=== PATIENT | male | born 1955 | race Caucasian/White ===

== ENCOUNTER 2024-06-09 23:39 | Emergency (ER) | payer OTHER ==
--- OUTSIDE RECORDS SUMMARY | 2024-06-09 23:44 | XMS REPORT | Continuity of Care Document ---
Author Name Unknown Address [address] [facility]. 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 Role Phone Claudia COMER [place] Primary Care Physician + [phone] DANA CUENCA Attending Clinician Unavailable Claudia Currie MD Attending Clinician [phone] CLAUDIA CURRIE Attending Clinician Unavailable Db Corrales APRN Attending Clinician [phone] Claudia Currie MD Attending Clinician [phone] MELANI HERNANDEZ Attending Clinician Unavailab Melani Mendoza Attending Clinician + [phone] Unknown, Attending Attending Clinician Unavailab le Doctor Unassigned, [place] Attending Clinician U Araseli Faulkner MD Attending Clinician [phone] MARI MOODY Attending Clinician Unavailable Mari Nj Attending Clinician + [phone] ARASELI RODRIGES Attending Clinician Unavailable SANDIP BROWN Attending Clinician Unavailable Ebrahim PAPER STEAMERSandip Attending Clinician Vaccine, Ang Db Cbc Fam Attending Clinician Unav ailable NEAL GRAHAM Attending Clinician Unavail able Nurse, Adc Pob Immunization Attending Clinician Unavailable Neal Graham DO Attending Clinician JOEL MAIER Attending Clinician Unavailable UNKNOWN, ATTENDING Attending Clinician Unavailab RAJ Andrade Attending Clinician Unavailable DANA CUENCA Admitting Clinician Unavailable CLAUDIA CURRIE Admitting Clinician Unavailable Payers Payer Name Policy Type Policy Number Effective Date Expirati on Date Source AETNA O [id number] 2019 00:00:00 MEDICARE PART A [id number] 2021 00:00:00 [facility] [id number] 2020 00:00:00 Problems Condition Name Condition Details Condition Category Status Onset Date Resolution Date Last Treatment Date Treating Clinician Comments Source Sprain of anterior talofibula r ligament of left ankle Sprain of anterior talofibula r ligament of left ankle Disease Active 01-18 00:00: [address] [facility] COVID-19 COVID-19 Disease Active 01-16 00:00: 00 [facility] Morbid obesity with body mass index of 40.0-49.9 Morbid obesity with body mass index of 40.0-49.9 Disease Active 11-16 00:00: 00 [facility] Screening for colorectal cancer Screening for colorectal cancer Disease Active 08-12 00:00: 00 Overview: Formattin g of this note might be different from the original. Added automatic ally from request for surgery [id number] [facility] Mixed dyslipidem ia Mixed dyslipidem ia Disease Active 03-22 00:00: 00 [facility] Erythrocyt osis Erythrocyt osis Disease Active 03-22 00:00: 00 [facility] B12 deficiency B12 deficiency Disease Active 03-22 00:00: 00 [facility] Chronic pain of right knee Chronic pain of right knee Disease Active 03-20 00:00: 00 [facility] Anxiety disorder Anxiety disorder Disease Active 03-20 00:00: 00 [facility] Chronic right shoulder pain Chronic right shoulder pain Disease Active 03-20 00:00: 00 [facility] Essential hypertensi on Essential hypertensi on Disease Active 03-20 00:00: 00 [facility] Allergic rhinitis Allergic rhinitis Disease Active 03-20 00:00: 00 [facility] Obesity Obesity Disease Active 03-20 00:00: 00 [facility] Allergies, Adverse Reactions, Alerts Allergy Name Allergy Type Status Severity Reaction(s) Onset Date Inactive Date Treating Clinician Comments Source NO KNOWN ALLERGIE S Drug Class Active [facility] Social History Social Habit Start Date Stop Date Quantity Comments Source Sexual [facility] History of tobacco use Cigarette Smoker [facility] History SDOH Alcohol Frequency [facility] History SDOH Alcohol Std Drinks [facility] History SDOH Alcohol Binge [facility] Gender identity [facility] Tobacco use and exposure 2024-01-17 00:00:00 2024-01-17 00:00:00 Smokeless tobacco non-user [facility] History of Social function 2024-01-17 00:00:00 2024-01-17 00:00:00 [facility] Alcoholic beverage intake 2024-01-14 00:00:00 2024-01-14 00:00:00 0 /d [facility] Alcohol intake 2023-11-07 00:00:00 2023-11-07 00:00:00 0 /d [facility] Exposure to SARS-CoV-2 (event) 2022-11-08 00:00:00 2022-11-18 15:23:00 Not sure [facility] Alcohol Comment 2016 00:00:00 2016 00:00:00 occasional [facility] Sex assigned at 1955 00:00:00 1955 00:00:00 [facility] Smoking Status Start Date Stop Date Source Never smoked tobacco [facility] Ex-smoker 2023-11-25 00:00:00 2023-11-25 00:00:00 [facility] Medications Ordered Medication Name Filled Medication Name Start Date Stop Date Current Medication? Ordering Clinician Indication Dosage Frequency Signature (SIG) Comments Components Source LISINOPRIL 20 mg tablet 2023-07 00:00: 00 Yes [id number] 20mg TAKE 1 TABLET BY MOUTH DAILY [facility] triamcinolo ne acetonide (KENALOG) injection 40 mg 2023-07 16:30: 00 04-22 15:49 :00 No [id number] 40mg 40 mg, Intramuscu lar, ONCE, 1 dose, On Sat04/22/24 at 1130, Routine [facility] methylPREDN ISolone acetate (DEPO-MEDRO L) injection 80 mg 2023-07 16:15: 00 04-22 15:48 :00 No [id number] 80mg 80 mg, Intramuscu lar, ONCE, 1 dose, On Sat04/22/24 at 1115, Routine [facility] traMADoL 50 mg tablet 2023-07 00:00: 00 04-30 04:59 :00 Yes [id number] 50mg Take 1 tablet by mouth every 6 (six) hours as needed for Pain (scale 4-6) for up to 7 days. Indication s: acute pain [facility] METHOCARBAM OL 750 mg tablet 04-03 00:00: 00 Yes [id number] TAKE 1 TABLET BY MOUTH 4 TIMES A DAY [facility] clonazePAM 2 mg tablet 04-03 00:00: 00 Yes [id number] TAKE 1 TABLET BY MOUTH 3 TIMES A DAY NEEDED FOR ANXIETY [facility] lisinopril 20 MG tablet 01-16 09:38: 12 Yes 20mg QD Take 20 mg by mouth 1 (one) time each day. [facility] methocarbam ol (Robaxin) 500 MG tablet 01-16 09:38: 12 Yes 500mg Q.25D Take 500 mg by mouth in the morning and 500 mg at noon and 500 mg in the evening and 500 mg before bedtime. [facility] etodolac XL (Lodine XL) 500 MG 24 hr tablet 01-16 09:38: 12 Yes 500mg QD Take 500 mg by mouth 1 (one) time each day. [facility] clonazePAM (KlonoPIN) 2 MG tablet 01-16 09:38: 12 Yes Q.5D Take by mouth 2 (two) times a day if needed for seizures. [facility] ibuprofen 600 MG tablet 01-16 09:38: 12 Yes Take by mouth. [facility] cyancobalam in (Vitamin B-12) 500 MCG tablet 01-16 09:38: 12 Yes 500ug QD Take 500 mcg by mouth 1 (one) time each day. [facility] traMADol (Ultram) 50 MG tablet 01-16 00:00: 00 01-24 04:59 :00 No [id number] 50mg Q6H Take 1 tablet (50 mg total) by mouth every 6 (six) hours if needed for moderate pain for up to [address] [facility] ibuprofen 600 mg tablet 01-13 00:00: 00 Yes [id number] 600mg Take 1 tablet by mouth every 6 (six) hours as needed for Pain (scale 4-6). [facility] moxifloxaci n 0.5 % ophthalmic drops 01-13 00:00: 00 01-21 04:59 :00 No [id number] 1[drp] Place 1 Drop in left eye in the morning and 1 Drop at noon and 1 Drop in the evening. Do all this for 7 days. [facility] clonazePAM 2 mg tablet 12-22 00:00: 00 04-03 00:00 :00 No [id number] TAKE ONE TABLET BY MOUTH THREE TIMES A DAY NEEDED FOR ANXIETY [facility] LISINOPRIL 20 mg tablet 11-20 00:00: 00 05-25 00:00 :00 No [id number] 20mg TAKE 1 TABLET BY MOUTH DAILY [facility] Fluticasone -Salmeterol (WIXELA INHUB) 100-50 mcg/dose inhalation disk -19 00:00: 00 Yes [id number] 1{puff} Inhale 1 Puff every 12 (twelve) hours. [facility] phentermine HCl (PHENTERMIN E ORAL) 11-06 15:49: 36 Yes Take by mouth. [facility] montelukast 10 mg tablet 11-06 00:00: 00 Yes [id number] 10mg Take 1 tablet by mouth in the morning. [facility] benzonatate (TESSALON PERLES) 100 mg capsule 11-06 00:00: 00 Yes [id number] 100mg Take 1 capsule by mouth 3 (three) times daily as needed for Cough. [facility] azelastine 137 mcg (0.1 %) nasal spray 11-06 00:00: 00 Yes [id number] 1{spray } Use 1 [place] in each nostril in the morning and 1 [place] in the evening. Use in each nostril as directed [facility] budesonide- formoteroL 80-4.5 mcg/actuati on inhaler 11-06 00:00: 00 11-07 00:00 :00 No [id number] 2{puff} Inhale 2 Puffs in the morning and 2 Puffs in the evening. [facility] METHOCARBAM OL 750 mg tablet 10-28 00:00: 00 04-03 00:00 :00 No [id number] TAKE 1 TABLET BY MOUTH 4 TIMES A DAY [facility] methylpredn isolone sod succ (SOLU-MEDRO L) injection 125 mg 10-26 22:45: 00 10-26 22:15 :00 No [id number] 125mg 125 mg, Intramuscu lar, ONCE, 1 dose, On 10/27/23 at 1745, Routine [facility] albuterol 90 mcg/actuati on inhaler 10-26 00:00: 00 Yes [id number] 2{puff} Inhale 2 Puffs every 6 (six) hours as needed for Wheezing or Shortness of Breath. [facility] guaiFENesin 400 mg tablet 10-26 00:00: 00 Yes [id number] 400mg Take 1 tablet by mouth every 4 (four) hours as needed for Cough. [facility] benzonatate 100 mg capsule 10-26 00:00: 11-06 00:00 :00 No [id number] 200mg Take 2 capsules by mouth every 8 (eight) hours as needed for Cough. [facility] promethazin e-dextromet horphan 6.25-15 mg/5 mL syrup 10-26 00:00: 11-06 00:00 :00 No [id number] 5mL Take 5 mL by mouth 4 (four) times daily as needed for Cough. [facility] amoxicillin -clavulanat e (AUGMENTIN) 875-125 mg per tablet 10-26 00:00: 00 11-06 00:00 :00 No [id number] 1{tbl} Take 1 tablet by mouth in the morning and 1 tablet in the evening. [facility] predniSONE 20 mg tablet 10-26 00:00: 11-06 00:00 :00 No [id number] 40mg Take 2 tablets by mouth in the morning. [facility] clonazePAM 2 mg tablet 10-22 00:00: 12-22 00:00 :00 No [id number] TAKE ONE TABLET BY MOUTH THREE TIMES A DAY NEEDED FOR ANXIETY [facility] cyanocobala min (DODEX) injection 1,000 mcg 10-20 21:00: 00 10-20 20:05 :00 No [id number] 1000ug 1,000 mcg, Intramuscu lar, ONCE, 1 dose, On Sat10/21/23 at 1600, Routine [facility] methylPREDN ISolone (MEDROL, CALI,) 4 mg tablets 10-20 00:00: 00 Yes [id number] Take by mouth SEE-INSTRU CTIONS. follow package directions [facility] azithromyci n 250 mg tablet 10-20 00:00: 00 11-06 00:00 :00 No [id number] 250mg Take 1 tablet by mouth in the morning. Take 500 mg day 1, then 250 mg days 2 to 5. [facility] ETODOLAC 500 mg tablet 2022-07 00:00: 00 Yes [id number] TAKE ONE TABLET BY MOUTH TWICE A DAY [facility] METHOCARBAM OL 750 mg tablet 2022-07- 00:00: 00 10-28 00:00 :00 No [id number] 750mg TAKE ONE TABLET BY MOUTH FOUR TIMES A DAY [facility] clonazePAM 2 mg tablet 9-14 00:00: 00 10-22 00:00 :00 No [id number] TAKE ONE TABLET BY MOUTH THREE TIMES A DAY NEEDED FOR ANXIETY [facility] methocarbam oL 750 mg tablet -26 00:00: 00 04-22 00:00 :00 No [id number] 750mg Take 1 tablet by mouth 4 (four) times daily. [facility] CLONAZEPAM 2 mg tablet 12-10 00:00: 00 04-04 00:00 :00 No [id number] TAKE ONE TABLET BY MOUTH THREE TIMES A DAY NEEDED FOR ANXIETY [facility] LISINOPRIL 20 mg tablet 12-06 00:00: 00 11-20 00:00 :00 No [id number] TAKE ONE TABLET BY MOUTH DAILY [facility] aspirin 325 mg tablet 11-19 14:33: 18 11-19 00:00 :00 No 325mg Take 325 mg by mouth daily. [facility] phentermine HCl (PHENTERMIN E ORAL) 11-19 14:16: 17 Yes Take by mouth. [facility] HYDROcodone -acetaminop hen 7.5-325 mg per tablet 11-19 00:00: 00 04-22 00:00 :00 No [id number] 1{tbl} Take 1 tablet by mouth every 6 (six) hours as needed for Pain. Take 1 tablet by mouth every 6 (six) hours as needed for Pain for up to 7 days. Indication s: chronic pain Indication s: chronic pain [facility] METHOCARBAM OL 750 mg tablet 309 00:00: 00 01-14 00:00 :00 No [id number] TAKE ONE TABLET BY MOUTH FOUR TIMES A DAY [facility] CL[facility] 2 mg tablet 17 00:00: 00 12-10 00:00 :00 No [id number] TAKE ONE TABLET BY MOUTH THREE TIMES A DAY NEEDED FOR ANXIETY [facility] methocarbam oL 750 mg tablet 2021-07 00:00: 00 09-27 00:00 :00 No [id number] 750mg Take 1 tablet by mouth 4 (four) times daily. [facility] ETODOLAC 500 mg tablet 2021-07 00:00: 00 05-29 00:00 :00 No [id number] TAKE ONE TABLET BY MOUTH TWICE A DAY [facility] LISINOPRIL 20 mg tablet 2021-07 00:00: 00 12-06 00:00 :00 No [id number] TAKE ONE TABLET BY MOUTH DAILY [facility] CLONAZEPAM 2 mg tablet 2021-07 00:00: 00 08-07 00:00 :00 No [id number] TAKE ONE TABLET BY MOUTH THREE TIMES A DAY NEEDED FOR ANXIETY [facility] etodolac 500 mg tablet 11-27 00:00: 00 06-11 00:00 :00 No [id number] 500mg Take 1 tablet by mouth 2 (two) times daily. [facility] clonazePAM 2 mg tablet 11-27 00:00: 00 06-05 00:00 :00 No [id number] TAKE ONE TABLET BY MOUTH THREE TIMES A DAY NEEDED FOR ANXIETY [facility] LISINOPRIL 20 mg tablet 09-12 00:00: 00 06-06 00:00 :00 No [id number] TAKE ONE TABLET BY MOUTH DAILY [facility] CLONAZE[facility]AM 2 mg tablet 09-12 00:00: 00 11-27 00:00 :00 No [id number] TAKE ONE TABLET BY MOUTH THREE TIMES A DAY NEEDED FOR ANXIETY [facility] albuterol 90 mcg/actuati on inhaler 02-15 00:00: 00 Yes [id number] 2{puff} Inhale 2 Puffs every 4 (four) hours as needed for Wheezing or Shortness of Breath. [facility] aspirin 325 mg tablet 01-30 20:30: 52 Yes 325mg Take 325 mg by mouth daily. [facility] ondansetron (ZOFRAN ODT) 4 mg disintegrat ing tablet 01-14 00:00: 00 11-06 00:00 :00 No [id number] 4mg Take 1 tablet by mouth every 8 (eight) hours as needed for Nausea and Vomiting (N/V). [facility] etodolac 500 mg tablet 12-29 00:00: 00 11-27 00:00 :00 No [id number] 500mg Take 1 tablet by mouth 2 (two) times daily. [facility] tadalafil (CIALIS) 20 mg tablet 02-16 00:00: 00 Yes [id number] 20mg Take 1 tablet by mouth as needed for Erectile dysfunctio n. [facility] HYDROcodone -acetaminop hen 7.5-325 mg per tablet 25 00:00: 00 11-27 00:00 :00 No [id number] 1{tbl} Take 1 tablet by mouth every 6 (six) hours as needed for Pain. [facility] vitamin B-12 (VITAMIN B-12) 500 mcg tablet 03-22 00:00: 00 Yes 500ug Take 1 tablet by mouth daily. [facility] Immunizations Ordered Immunization Name Filled Immunization Name Date Status Comments Source SARS-COV-2 COVID-19 PFIZER SAMUEL-SUCROSE VACCINE (JEAN TOP) 2021-11-24 00:00:00 Completed [facility] SARS-COV-2 COVID-19 PFIZER SAMUEL-SUCROSE VACCINE (JEAN TOP) 2021-11-24 00:00:00 Completed [facility] SARS-COV-2 COVID-19 PFIZER SAMUEL-SUCROSE VACCINE (JEAN TOP) 2021-11-24 00:00:00 Completed [facility] SARS-COV-2 COVID-19 PFIZER SAMUEL-SUCROSE VACCINE (JEAN TOP) 2021-11-24 00:00:00 Completed [facility] SARS-COV-2 COVID-19 PFIZER SAMUEL-SUCROSE VACCINE (JEAN TOP) 2021-11-24 00:00:00 Completed [facility] SARS-COV-2 COVID-19 PFIZER SAMUEL-SUCROSE VACCINE (JEAN TOP) 2021-11-24 00:00:00 Completed [facility] SARS-COV-2 COVID-19 PFIZER SAMUEL-SUCROSE VACCINE (JEAN TOP) 2021-11-24 00:00:00 Completed [facility] SARS-COV-2 COVID-19 PFIZER SAMUEL-SUCROSE VACCINE (JEAN TOP) 2021-11-24 00:00:00 Completed [facility] SARS-COV-2 COVID-19 PFIZER SAMUEL-SUCROSE VACCINE (JEAN TOP) 2021-11-24 00:00:00 Completed [facility] SARS-COV-2 COVID-19 PFIZER SAMUEL-SUCROSE VACCINE (JEAN TOP) 2021-11-24 00:00:00 Completed [facility] SARS-COV-2 COVID-19 PFIZER SAMUEL-SUCROSE VACCINE (JEAN TOP) 2021-11-24 00:00:00 Completed [facility] SARS-COV-2 COVID-19 PFIZER SAMUEL-SUCROSE VACCINE (JEAN TOP) 2021-11-24 00:00:00 Completed [facility] SARS-COV-2 COVID-19 PFIZER SAMUEL-SUCROSE VACCINE (JEAN TOP) 2021-11-24 00:00:00 Completed [facility] SARS-COV-2 COVID-19 PFIZER SAMUEL-SUCROSE VACCINE (JEAN TOP) 2021-11-24 00:00:00 Completed [facility] SARS-COV-2 COVID-19 PFIZER SAMUEL-SUCROSE VACCINE (JEAN TOP) 2021-11-24 00:00:00 Completed [facility] SARS-COV-2 COVID-19 PFIZER SAMUEL-SUCROSE VACCINE (JEAN TOP) 2021-11-24 00:00:00 Completed [facility] SARS-COV-2 COVID-19 PFIZER SAMUEL-SUCROSE VACCINE (JEAN TOP) 2021-11-24 00:00:00 Completed [facility] SARS-COV-2 COVID-19 PFIZER SAMUEL-SUCROSE VACCINE (JEAN TOP) 2021-11-24 00:00:00 Completed [facility] SARS-COV-2 COVID-19 PFIZER SAMUEL-SUCROSE VACCINE (JEAN TOP) 2021-11-24 00:00:00 Completed [facility] SARS-COV-2 COVID-19 PFIZER SAMUEL-SUCROSE VACCINE (JEAN TOP) 2021-11-24 00:00:00 Completed [facility] SARS-COV-2 COVID-19 PFIZER SAMUEL-SUCROSE VACCINE (JEAN TOP) 2021-11-24 00:00:00 Completed [facility] SARS-COV-2 COVID-19 PFIZER SAMUEL-SUCROSE VACCINE (JEAN TOP) 2021-11-24 00:00:00 Completed [facility] SARS-COV-2 COVID-19 PFIZER SAMUEL-SUCROSE VACCINE (JEAN TOP) 2021-11-24 00:00:00 Completed [facility] SARS-COV-2 COVID-19 PFIZER SAMUEL-SUCROSE VACCINE (JEAN TOP) 2021-11-24 00:00:00 Completed [facility] SARS-COV-2 COVID-19 PFIZER SAMUEL-SUCROSE VACCINE (JEAN TOP) 2021-11-24 00:00:00 Completed [facility] SARS-COV-2 COVID-19 PFIZER SAMUEL-SUCROSE VACCINE (JEAN TOP) 2021-11-24 00:00:00 Completed [facility] SARS-COV-2 COVID-19 PFIZER SAMUEL-SUCROSE VACCINE (JEAN TOP) 2021-11-24 00:00:00 Completed [facility] SARS-COV-2 COVID-19 PFIZER SAMUEL-SUCROSE VACCINE (JEAN TOP) 2021-11-24 00:00:00 Completed [facility] SARS-COV-2 COVID-19 PFIZER VACCINE 2021-03-15 00:00:00 Completed [facility] SARS-COV-2 COVID-19 PFIZER VACCINE 2021-03-15 00:00:00 Completed [facility] SARS-COV-2 COVID-19 PFIZER VACCINE 2021-03-15 00:00:00 Completed [facility] SARS-COV-2 COVID-19 PFIZER VACCINE 2021-03-15 00:00:00 Completed [facility] SARS-COV-2 COVID-19 PFIZER VACCINE 2021-03-15 00:00:00 Completed [facility] SARS-COV-2 COVID-19 PFIZER VACCINE 2021-03-15 00:00:00 Completed [facility] SARS-COV-2 COVID-19 PFIZER VACCINE 2021-03-15 00:00:00 Completed [facility] SARS-COV-2 COVID-19 PFIZER VACCINE 2021-03-15 00:00:00 Completed [facility] SARS-COV-2 COVID-19 PFIZER VACCINE 2021-03-15 00:00:00 Completed [facility] SARS-COV-2 COVID-19 PFIZER VACCINE 2021-03-15 00:00:00 Completed [facility] SARS-COV-2 COVID-19 PFIZER VACCINE 2021-03-15 00:00:00 Completed [facility] SARS-COV-2 COVID-19 PFIZER VACCINE 2021-03-15 00:00:00 Completed [facility] SARS-COV-2 COVID-19 PFIZER VACCINE 2021-03-15 00:00:00 Completed [facility] SARS-COV-2 COVID-19 PFIZER VACCINE 2021-03-15 00:00:00 Completed [facility] SARS-COV-2 COVID-19 PFIZER VACCINE 2021-03-15 00:00:00 Completed [facility] SARS-COV-2 COVID-19 PFIZER VACCINE 2021-03-15 00:00:00 Completed [facility] SARS-COV-2 COVID-19 PFIZER VACCINE 2021-03-15 00:00:00 Completed [facility] SARS-COV-2 COVID-19 PFIZER VACCINE 2021-03-15 00:00:00 Completed [facility] SARS-COV-2 COVID-19 PFIZER VACCINE 2021-03-15 00:00:00 Completed [facility] SARS-COV-2 COVID-19 PFIZER VACCINE 2021-03-15 00:00:00 Completed [facility] SARS-COV-2 COVID-19 PFIZER VACCINE 2021-03-15 00:00:00 Completed [facility] SARS-COV-2 COVID-19 PFIZER VACCINE 2021-03-15 00:00:00 Completed [facility] SARS-COV-2 COVID-19 PFIZER VACCINE 2021-03-15 00:00:00 Completed [facility] SARS-COV-2 COVID-19 PFIZER VACCINE 2021-03-15 00:00:00 Completed [facility] SARS-COV-2 COVID-19 PFIZER VACCINE 2021-03-15 00:00:00 Completed [facility] SARS-COV-2 COVID-19 PFIZER VACCINE 2021-03-15 00:00:00 Completed [facility] SARS-COV-2 COVID-19 PFIZER VACCINE 2021-03-15 00:00:00 Completed [facility] SARS-COV-2 COVID-19 PFIZER VACCINE 2021-03-15 00:00:00 Completed [facility] SARS-COV-2 COVID-19 PFIZER VACCINE 2021-01-02 00:00:00 Completed [facility] SARS-COV-2 COVID-19 PFIZER VACCINE 2021-01-02 00:00:00 Completed [facility] SARS-COV-2 COVID-19 PFIZER VACCINE 2021-01-02 00:00:00 Completed [facility] SARS-COV-2 COVID-19 PFIZER VACCINE 2021-01-02 00:00:00 Completed [facility] SARS-COV-2 COVID-19 PFIZER VACCINE 2021-01-02 00:00:00 Completed [facility] SARS-COV-2 COVID-19 PFIZER VACCINE 2021-01-02 00:00:00 Completed [facility] SARS-COV-2 COVID-19 PFIZER VACCINE 2021-01-02 00:00:00 Completed [facility] SARS-COV-2 COVID-19 PFIZER VACCINE 2021-01-02 00:00:00 Completed [facility] SARS-COV-2 COVID-19 PFIZER VACCINE 2021-01-02 00:00:00 Completed [facility] SARS-COV-2 COVID-19 PFIZER VACCINE 2021-01-02 00:00:00 Completed [facility] SARS-COV-2 COVID-19 PFIZER VACCINE 2021-01-02 00:00:00 Completed [facility] SARS-COV-2 COVID-19 PFIZER VACCINE 2021-01-02 00:00:00 Completed [facility] SARS-COV-2 COVID-19 PFIZER VACCINE 2021-01-02 00:00:00 Completed [facility] SARS-COV-2 COVID-19 PFIZER VACCINE 2021-01-02 00:00:00 Completed [facility] SARS-COV-2 COVID-19 PFIZER VACCINE 2021-01-02 00:00:00 Completed [facility] SARS-COV-2 COVID-19 PFIZER VACCINE 2021-01-02 00:00:00 Completed [facility] SARS-COV-2 COVID-19 PFIZER VACCINE 2021-01-02 00:00:00 Completed [facility] SARS-COV-2 COVID-19 PFIZER VACCINE 2021-01-02 00:00:00 Completed [facility] SARS-COV-2 COVID-19 PFIZER VACCINE 2021-01-02 00:00:00 Completed [facility] SARS-COV-2 COVID-19 PFIZER VACCINE 2021-01-02 00:00:00 Completed [facility] SARS-COV-2 COVID-19 PFIZER VACCINE 2021-01-02 00:00:00 Completed [facility] SARS-COV-2 COVID-19 PFIZER VACCINE 2021-01-02 00:00:00 Completed [facility] SARS-COV-2 COVID-19 PFIZER VACCINE 2021-01-02 00:00:00 Completed [facility] SARS-COV-2 COVID-19 PFIZER VACCINE 2021-01-02 00:00:00 Completed [facility] SARS-COV-2 COVID-19 PFIZER VACCINE 2021-01-02 00:00:00 Completed [facility] SARS-COV-2 COVID-19 PFIZER VACCINE 2021-01-02 00:00:00 Completed [facility] SARS-COV-2 COVID-19 PFIZER VACCINE 2021-01-02 00:00:00 [facility] [facility] SARS-COV-2 COVID-19 PFIZER VACCINE 2021-01-02 00:00:00 Completed [facility] TDAP 2019-06-12 00:00:00 Completed [facility] TDAP 2019-06-12 00:00:00 Completed [facility] TDAP 2019-06-12 00:00:00 Completed [facility] TDAP 2019-06-12 00:00:00 Completed [facility] TDAP 2019-06-12 00:00:00 Completed [facility] TDAP 2019-06-12 00:00:00 Completed [facility] TDAP 2019-06-12 00:00:00 Completed [facility] TDAP 2019-06-12 00:00:00 Completed [facility] TDAP 2019-06-12 00:00:00 Completed [facility] TDAP 2019-06-12 00:00:00 Completed [facility] TDAP 2019-06-12 00:00:00 Completed [facility] TDAP 2019-06-12 00:00:00 Completed [facility] TDAP 2019-06-12 00:00:00 Completed [facility] TDAP 2019-06-12 00:00:00 Completed [facility] TDAP 2019-06-12 00:00:00 Completed [facility] TDAP 2019-06-12 00:00:00 Completed [facility] TDAP 2019-06-12 00:00:00 Completed [facility] TDAP 2019-06-12 00:00:00 Completed [facility] TDAP 2019-06-12 00:00:00 Completed [facility] TDAP 2019-06-12 00:00:00 Completed [facility] TDAP 2019-06-12 00:00:00 Completed [facility] TDAP 2019-06-12 00:00:00 Completed [facility] TDAP 2019-06-12 00:00:00 Completed [facility] TDAP 2019-06-12 00:00:00 Completed [facility] TDAP 2019-06-12 00:00:00 Completed [facility] TDAP 2019-06-12 00:00:00 Completed [facility] TDAP 2019-06-12 00:00:00 Completed [facility] TDAP 2019-06-12 00:00:00 Completed [facility] TDAP Unknown Completed [facility] SARS-COV-2 COVID-19 PFIZER VACCINE Unknown Completed [facility] SARS-COV-2 COVID-19 PFIZER SAMUEL-SUCROSE VACCINE (JEAN TOP) Unknown Completed [facility] TD[facility] Unknown Completed [facility] SARS-COV-2 COVID-19 PFIZER VACCINE Unknown Completed [facility] SARS-COV-2 COVID-19 PFIZER SAMUEL-SUCROSE VACCINE (JEAN TOP) Unknown Completed [facility] TDAP Unknown Completed [facility] SARS-COV-2 COVID-19 PFIZER VACCINE Unknown Completed [facility] SARS-COV-2 COVID-19 PFIZER SAMUEL-SUCROSE VACCINE (JEAN TOP) Unknown Completed [facility] TDAP Unknown Completed [facility] SARS-COV-2 COVID-19 PFIZER VACCINE Unknown Completed [facility] SARS-COV-2 COVID-19 PFIZER SAMUEL-SUCROSE VACCINE (JEAN TOP) Unknown Completed [facility] TDAP Unknown Completed [facility] SARS-COV-2 COVID-19 PFIZER VACCINE Unknown Completed [facility] SARS-COV-2 COVID-19 PFIZER SAMUEL-SUCROSE VACCINE (JEAN TOP) Unknown [facility] Completed [facility] SARS-COV-2 COVID-19 PFIZER VACCINE Unknown Completed [facility] SARS-COV-2 COVID-19 PFIZER SAMUEL-SUCROSE VACCINE (JEAN TOP) Unknown Completed [facility] TDAP Unknown Completed [facility] SARS-COV-2 COVID-19 PFIZER VACCINE Unknown Completed [facility] SARS-COV-2 COVID-19 PFIZER SAMUEL-SUCROSE VACCINE (JEAN TOP) Unknown [facility] Unknown Completed [facility] SARS-COV-2 COVID-19 PFIZER SAMUEL-SUCROSE VACCINE (JEAN TOP) Unknown Completed [facility] SARS-COV-2 COVID-19 PFIZER VACCINE Unknown Completed [facility] TDAP Unknown Completed [facility] SARS-COV-2 COVID-19 PFIZER VACCINE Unknown Completed [facility] SARS-COV-2 COVID-19 PFIZER SAMUEL-SUCROSE VACCINE (JEAN TOP) Unknown Completed [facility] TDAP Unknown Completed [facility] SARS-COV-2 COVID-19 PFIZER VACCINE Unknown Completed [facility] SARS-COV-2 COVID-19 PFIZER SAMUEL-SUCROSE VACCINE (JEAN TOP) Unknown Completed [facility] TDAP Unknown Completed [facility] SARS-COV-2 COVID-19 PFIZER VACCINE Unknown Completed [facility] SARS-COV-2 COVID-19 PFIZER SAMUEL-SUCROSE VACCINE (JEAN TOP) Unknown Completed [facility] TDAP Unknown Completed [facility] SARS-COV-2 COVID-19 PFIZER SAMUEL-SUCROSE VACCINE (JEAN TOP) Unknown Completed [facility] SARS-COV-2 COVID-19 PFIZER VACCINE Unknown Completed [facility] TDAP Unknown Completed [facility] SARS-COV-2 COVID-19 PFIZER VACCINE Unknown Completed [facility] SARS-COV-2 COVID-19 PFIZER SAMUEL-SUCROSE VACCINE (JEAN TOP) Unknown Completed [facility] TDAP Unknown Completed [facility] SARS-COV-2 COVID-19 PFIZER VACCINE Unknown Completed [facility] SARS-COV-2 COVID-19 PFIZER SAMUEL-SUCROSE VACCINE (JEAN TOP) Unknown Completed [facility] TDAP Unknown Completed [facility] SARS-COV-2 COVID-19 PFIZER VACCINE Unknown Completed [facility] SARS-COV-2 COVID-19 PFIZER SAMUEL-SUCROSE VACCINE (JEAN TOP) Unknown [facility] TD[facility] Unknown Completed [facility] SARS-COV-2 COVID-19 PFIZER VACCINE Unknown Completed [facility] SARS-COV-2 COVID-19 PFIZER SAMUEL-SUCROSE VACCINE (JEAN TOP) Unknown Com[facility] TD[facility] Unknown Completed [facility] SARS-COV-2 COVID-19 PFIZER VACCINE Unknown Completed [facility] SARS-COV-2 COVID-19 PFIZER SAMUEL-SUCROSE VACCINE (JEAN TOP) Unknown Completed [facility] TDAP Unknown Completed [facility] SARS-COV-2 COVID-19 PFIZER VACCINE Unknown Completed [facility] SARS-COV-2 COVID-19 PFIZER SAMUEL-SUCROSE VACCINE (JEAN TOP) Unknown Completed [facility] TDAP Unknown Completed [facility] SARS-COV-2 COVID-19 PFIZER VACCINE Unknown Completed [facility] SARS-COV-2 COVID-19 PFIZER SAMUEL-SUCROSE VACCINE (JEAN TOP) Unknown Completed [facility] TDAP Unknown Completed [facility] SARS-COV-2 COVID-19 PFIZER VACCINE Unknown Completed [facility] SARS-COV-2 COVID-19 PFIZER SAMUEL-SUCROSE VACCINE (JEAN TOP) Unknown Completed [facility] TDAP Unknown Completed [facility] SARS-COV-2 COVID-19 PFIZER VACCINE Unknown Completed [facility] SARS-COV-2 COVID-19 PFIZER SAMUEL-SUCROSE VACCINE (JEAN TOP) Unknown Completed [facility] TDAP Unknown Completed [facility] SARS-COV-2 COVID-19 PFIZER VACCINE Unknown Completed [facility] SARS-COV-2 COVID-19 PFIZER SAMUEL-SUCROSE VACCINE (JEAN TOP) Unknown Completed [facility] TDAP Unknown Completed [facility] SARS-COV-2 COVID-19 PFIZER VACCINE Unknown Completed [facility] SARS-COV-2 COVID-19 PFIZER SAMUEL-SUCROSE VACCINE (JEAN TOP) Unknown Completed [facility] TDAP Unknown Completed [facility] SARS-COV-2 COVID-19 PFIZER VACCINE Unknown Completed [facility] SARS-COV-2 COVID-19 PFIZER SAMUEL-SUCROSE VACCINE (JEAN TOP) Unknown Completed [facility] TDAP Unknown Completed [facility] SARS-COV-2 COVID-19 PFIZER VACCINE Unknown Completed [facility] SARS-COV-2 COVID-19 PFIZER SAMUEL-SUCROSE VACCINE (JEAN TOP) Unknown Completed [facility] Vital Signs Vital Name Observation Time Observation Value Comments S ource Systolic blood pressure 2024-04-22 15:12:00 150 mm[Hg] [facility] Diastolic blood pressure 2024-04-22 15:12:00 96 mm[Hg] [facility] Heart rate 2024-04-22 15:11:00 74 /min [facility] 2024-04-22 15:11:00 18 /min [facility] Body height 2024-04-22 15:11:00 177.8 cm [facility] Body weight 2024-04-22 15:11:00 130.772 kg [facility] BMI 2024-04-22 15:11:00 41.37 kg/m2 [facility] Oxygen saturation in Arterial blood by Pulse oximetry 2024-04-22 15:11:00 98 /min [facility] Body height 2024-01-17 14:24:00 177.8 cm [facility] weight 2024-01-17 14:24:00 124[facility]739 [facility] BMI 2024-01-17 14:24:00 39.46 kg/m2 [facility] Systolic blood pressure 2024-01-14 14:12:00 141 mm[Hg] [facility] Diastolic blood pressure 2024-01-14 14:12:00 94 mm[Hg] [facility] Heart rate 2024-01-14 14:11:00 85 /min [facility] Body temperature 2024-01-14 14:11:00 36.17 Margy [facility] Respiratory rate 2024-01-14 14:11:00 16 /min [facility] Body weight 2024-01-14 14:11:00 124.739 kg [facility] BMI 2024-01-14 14:11:00 39.46 kg/m2 [facility] Oxygen saturation in Arterial blood by Pulse oximetry 2024-01-14 14:11:00 98 /min [facility] Systolic blood pressure 2023-11-25 20:11:00 148 mm[Hg] [facility] Diastolic blood pressure 2023-11-25 20:11:00 86 mm[Hg] [facility] Heart rate 2023-11-25 20:10:00 71 /min [facility] Body height 2023-11-25 20:10:00 177.8 cm [facility] Body weight 2023-11-25 20:10:00 125.42 kg [facility] BMI 2023-11-25 20:10:00 39.67 kg/m2 [facility] Oxygen saturation in Arterial blood by Pulse oximetry 2023-11-25 20:10:00 97 /min [facility] Systolic blood pressure 2023-11-07 20:31:00 108 mm[Hg] [facility] Diastolic blood pressure 2023-11-07 20:31:00 72 mm[Hg] [facility] Heart rate 2023-11-07 20:31:00 85 /min [facility] Body temperature 2023-11-07 20:31:00 36.78 Margy [facility] Body height 2023-11-07 20:31:00 177.8 cm [facility] Body weight 2023-11-07 20:31:00 122.471 kg [facility] BMI 2023-11-07 20:31:00 38.74 kg/m2 [facility] Oxygen saturation in Arterial blood by Pulse oximetry 2023-11-07 20:31:00 98 /min [facility] Systolic blood pressure 2023-10-27 21:34:00 143 mm[Hg] [facility] Diastolic blood pressure 2023-10-27 21:34:00 79 mm[Hg] [facility] Heart rate 2023-10-27 21:34:00 70 /min [facility] Body temperature 2023-10-27 21:34:00 36.5 Margy [facility] Respiratory rate 2023-10-27 21:34:00 17 /min [facility] Body height 2023-10-27 21:34:00 177.8 cm [facility] Body weight 2023-10-27 21:34:00 122.925 kg [facility] BMI 2023-10-27 21:34:00 38.88 kg/m2 [facility] Oxygen saturation in Arterial blood by Pulse oximetry 2023-10-27 21:34:00 98 /min [facility] Systolic blood pressure 2023-10-21 19:41:00 135 mm[Hg] [facility] Diastolic blood pressure 2023-10-21 19:41:00 85 mm[Hg] [facility] Heart rate 2023-10-21 19:40:00 59 /min [facility] Body height 2023-10-21 19:40:00 177.8 cm [facility] Body weight 2023-10-21 19:40:00 121.791 kg [facility] BMI 2023-10-21 19:40:00 38.53 kg/m2 [facility] Oxygen saturation in Arterial blood by Pulse oximetry 2023-10-21 19:40:00 96 /min [facility] Systolic blood pressure 2022-11-19 19:16:00 143 mm[Hg] [facility] Diastolic blood pressure 2022-11-19 19:16:00 83 mm[Hg] [facility] Heart rate 2022-11-19 19:16:00 62 /min [facility] Body height 2022-11-19 19:16:00 177.8 cm [facility] Body weight 2022-11-19 19:16:00 132.224 kg [facility] BMI 2022-11-19 19:16:00 41.83 kg/m2 [facility] Oxygen saturation in Arterial blood by Pulse oximetry 2022-11-19 19:16:00 97 /min [facility] Systolic blood pressure 2022-06-13 18:11:00 113 mm[Hg] [facility] Diastolic blood pressure 2022-06-13 18:11:00 81 mm[Hg] [facility] Heart rate 2022-06-13 18:11:00 73 /min [facility] Body temperature 2022-06-13 18:11:00 37.11 Margy [facility] Body height 2022-06-13 18:11:00 177.8 cm [facility] Body weight 2022-06-13 18:11:00 137.168 kg [facility] BMI 2022-06-13 18:11:00 43.39 kg/m2 [facility] Oxygen saturation in Arterial blood by Pulse oximetry 2022-06-13 18:11:00 97 /min [facility] Systolic blood pressure 2022-01-19 21:25:00 128 mm[Hg] [facility] Diastolic blood pressure 2022-01-19 21:25:00 79 mm[Hg] [facility] Heart rate 2022-01-19 21:25:00 60 /min [facility] Body temperature 2022-01-19 21:25:00 36.83 Margy [facility] Respiratory rate 2022-01-19 21:25:00 18 /min [facility] Body height 2022-01-19 21:25:00 177.8 cm [facility] Body weight 2022-01-19 21:25:00 133.04 kg [facility] BMI 2022-01-19 21:25:00 42.08 kg/m2 [facility] Oxygen saturation in Arterial blood by Pulse oximetry 2022-01-19 21:25:00 97 /min [facility] Systolic blood pressure 2021-11-27 18:55:00 119 mm[Hg] [facility] Diastolic blood pressure 2021-11-27 18:55:00 71 mm[Hg] [facility] Heart rate 2021-11-27 18:55:00 76 /min [facility] Body height 2021-11-27 18:55:00 177.8 cm [facility] Body weight 2021-11-27 18:55:00 128.368 kg [facility] BMI 2021-11-27 18:55:00 40.61 kg/m2 [facility] Oxygen saturation in Arterial blood by Pulse oximetry 2021-11-27 18:55:00 95 /min [facility] Procedures Procedure Date / Time Performed Performing Clinicia n Source XR ANKLE 3+ VW LEFT 2024-01-14 15:03:54 Michelle Hernandez [facility] MR KNEE RIGHT WO CONTRAST 2023-12-24 20:36:09 Claudia Currie [facility] XR CHEST 2 VW 2023-10-27 22:28:00 Araseli Rodriges [facility] REFERRAL- REQUEST/RESPONSE 2023-02-18 05:01:00 Doctor Unassigned, [place] [facility] EXTERNAL PROVIDER RECORDS 2022-11-09 05:01:00 Doctor Unassigned, [place] [facility] ASSIGNMENT OF BENEFITS 2022-01-19 21:13:53 Docto r Unassigned, [place] [facility] Encounters Start Date/Time End Date/Time Encounter Type Admission Type Attending Clinicians Care Facility Care Department Encounter ID Source 2021-05-22 04:29:35 Emergency [facility] [id number] [facility] 2021-05-22 04:03:43 Emergency [facility] [id number] [facility] 2021-05-18 12:36:09 Outpatient R DANA CUENCA [facility] ST[facility] [id number] [facility] 2024-05-24 00:00:00 2024-05-25 12:19:13 [facility] 1.2840.114 350.1.13.10 4.2.7.2.686 [id number] [facility] 2024-04-22 10:15:00 2024-04-22 10:49:12 [facility] [id number] [facility] 2024-04-22 10:15:00 2024-04-22 10:49:12 Office Visit Izaiah [facility] 1.284.114 350.1.13.10 4.2.7.2.686 [id number] [facility] 2024-04-07 10:45:00 2024-04-07 11:25:00 Office [place] [facility] [id number] 350.1.13.58 9.2.7.2.[id number] [facility] 2024-04-03 00:00:00 2024-04-03 16:15:07 Refill Currie, [facility] 1.284.114 350.1.13.10 4.2.7.2.686 [id number] [facility] 2024 11:00:00 2024 11:00:00 Outpatient DB CORRALES [facility] [id number] [facility] 2024-01-30 14:20:00 2024-01-30 15:45:04 Outpatient [facility] [id number] [facility] 2024-01-30 14:45:00 2024-01-30 15:39:41 Outpatient DB [facility]ES [facility] [id number] [facility] 2024-01-29 11:45:00 2024-01-29 11:45:00 Outpatient DB CORRALES [facility] [id number] [facility] 2024-01-17 09:15:00 2024-01-17 10:23:58 Office Visit KylerDb freeman [facility] 1..840.114 350.1.13.58 9.2.7.2.[id number] [facility] 2024-01-01 00:00:00 2024-01-15 08:38:45 Telephone Izaiah [facility] 1.840.114 350.1.13.10 4.2.7.2.686 [id number] [facility] 2024-01-14 09:29:12 2024-01-14 23:59:00 Outpatient R MARYMILAN ARREDONDOMELANI [facility] [id number] [facility] 2024-01-14 09:29:12 2024-01-14 23:59:00 Hospital Encounter Melani Hernandez [facility] 1.840.114 350.1.13.10 4.2.7.2.686 [id number] [facility] 2024-01-14 00:00:00 2024-01-14 13:33:51 [facility] 1.840.114 350.1.13.10 4.2.7.2.686 [id number] [facility] 2024-01-14 09:00:00 2024-01-14 09:38:03 Urgent Care MaryMelani arredondo, Attending [facility] 1.2840.114 350.1.13.10 4.2.7.2.686 [id number] [facility] 2023-12-24 14:36:51 2023-12-24 23:59:00 Outpatient R CLAUDIA CURRIE [facility] [id number] [facility] 2023-12-24 14:36:51 2023-12-24 23:59:00 Hospital Encounter Claudia Currie [facility] 1.840.114 350.1.13.10 4.2.7.2.686 [id number] [facility] 2023-12-22 00:00:00 2023-12-23 07:52:28 Refill Izaiah Claudia [facility] 1.284.114 350.1.13.10 4.2.7.2.686 [id number] [facility] 2023-11-11 00:00:00 2023-12-14 18:08:47 Patient Secure Msg Doctor Unassigned, [place] [facility] 1.20.114 350.1.13.10 4.2.7.2.686 [id number] [facility] 2023-11-25 15:15:00 2023-11-25 15:30:00 Office Visit Claudia Currie [facility] 1.2840.114 350.1.13.10 4.2.7.2.686 [id number] [facility] 2023-11-25 15:15:00 2023-11-25 15:15:00 Outpatient R CLAUDIA CURRIE [facility] [id number] [facility] 2023-11-21 00:00:00 2023-11-21 00:00:00 Refill Claudia Currie [facility] DANIELE [facility]ONG [facility] 1.2840.114 350.1.13.10 4.2.7.2.686 [id number] [facility] 2023-11-19 00:00:00 2023-11-19 00:00:00 [facility] 1.2840.114 350.1.13.10 4.2.7.2.686 [id number] [facility] 2023-11-07 15:30:00 2023-11-07 16:13:56 Outpatient R MARI MOODY [facility] [id number] [facility] 2023-11-07 15:30:00 2023-11-07 16:13:56 Office Visit Mari Moody [facility] 1.20.114 350.1.13.10 4.2.7.2.686 [id number] [facility] 2023-11-07 00:00:00 2023-11-07 00:00:00 Telephone Claudia [facility] 1.2840.114 350.1.13.10 4.2.7.2.686 [id number] [facility] 2023-11-07 00:00:00 2023-11-07 00:00:00 Telephone zIaiah Claudia [facility] 1.2840.114 350.1.13.10 4.2.7.2.686 [id number] [facility] 2023-10-28 00:00:00 2023-10-28 00:00:00 Telephone Araseli Rodriges [facility] HA?[facility] 1.2840.114 350.1.13.10 4.2.7.2.686 [id number] [facility] 2023-10-28 00:00:00 2023-10-28 00:00:00 [facility]kristofer [facility] 1..84.114 350.1.13.10 4.2.7.2.686 [id number] [facility] 2023-10-27 17:00:21 2023-10-27 23:59:00 Hospital Encounter Araseli Rodriges [facility] HA?[facility] 1.840.114 350.1.13.10 4.2.7.2.686 [id number] [facility] 2023-10-27 16:20:00 2023-10-27 17:35:30 Outpatient R ARASELI RODRIGES [facility] [id number] [facility] 2023-10-27 16:20:00 2023-10-27 16:40:00 Urgent Care AntelmoAraseli Unknown, [facility]ending [facility] 1.840.114 350.1.13.10 4.2.7.2.686 [id number] [facility] 2023-10-22 00:00:00 2023-10-22 00:00:00 Brant Currie [facility] HA?[facility] 1.2.840.114 350.1.13.10 4.2.7.2.686 [id number] [facility] 2023-10-21 14:30:00 2023-10-21 17:22:00 Outpatient CLAUDIA DUNCAN [facility] [id number] [facility] 2023-10-21 14:30:00 2023-10-21 17:22:00 Office Visit Claudia Currie [facility] DANIELE [facility] 1.2840.114 350.1.13.10 4.2.7.2.686 [id number] [facility] 2023-05-31 00:00:00 2023-05-31 00:00:00 Patient Secure Msg Doctor Unassigned, [place] [facility] D[facility] 1.2840.114 350.1.13.10 4.2.7.2.686 [id number] [facility] 2023-05-29 00:00:00 2023-05-29 00:00:00 Refill Claudia Currie [facility] D[facility] 1.2840.114 350.1.13.10 4.2.7.2.686 [id number] [id number] [facility] 2023-04-26 00:00:00 2023-04-26 00:00:00 Refill Claudia Currie [facility] DANIELE BONNER?[facility] 1.2840.114 350.1.13.10 4.2.7.2.686 [id number] [facility] 2023-04-21 00:00:00 2023-04-21 00:00:00 Refill Claudia Currie [facility] DANIELE BONNER?DONG [facility] 1.2840.114 350.1.13.10 4.2.7.2.686 [id number] [facility] 2023-04-04 00:00:00 2023-04-04 00:00:00 Refill Claudia Currie [facility] DANIELE BONNER?[facility] 1.2840.114 350.1.13.10 4.2.7.2.686 [id number] [facility] 2023-04-04 00:00:00 2023-04-04 00:00:00 [facility]phone [facility] 1.2840.114 350.1.13.10 4.2.7.2.686 [id number] [facility] 2023-02-28 00:00:00 2023-02-28 00:00:00 Telephone Izaiah Claudia [facility] HA?DONG [facility] 1.2840.114 350.1.13.10 4.2.7.2.686 [id number] [facility] 2023-02-26 00:00:00 2023-02-26 00:00:00 Telephone Izaiah Claudia [facility] HA?DONG [facility] 1.2840.114 350.1.13.10 4.2.7.2.686 [id number] [facility] 2023-02-18 00:00:00 2023-02-18 00:00:00 Orders Only Doctor Unassigned, [place] [facility] 1.2840.114 350.1.13.10 4.2.7.2.686 [id number] [facility] 2023-02-14 00:00:00 2023-02-14 00:00:00 [facility] 1.2840.114 350.1.13.10 4.2.7.2.686 [id number] [id number] [facility] 2023-02-13 00:00:00 2023-02-13 00:00:00 Telephone Izaiah [facility] HA?DONG [facility] 1.2840.114 350.1.13.10 4.2.7.2.686 [id number] [facility] 2023-01-14 00:00:00 2023-01-14 00:00:00 [facility]ill [facility]DONG [facility] 1.2.840.114 350.1.13.10 4.2.7.2.686 [id number] [id number] [facility] 2022-12-09 00:00:00 2022-12-09 00:00:00 Refill Claudia Currie [facility] HA?[facility] 1.2.840.114 350.1.13.10 4.2.7.2.686 [id number] [facility] 2022-12-06 00:00:00 2022-12-06 00:00:00 [facility]ill [facility] 1.2840.114 350.1.13.10 4.2.7.2.686 [id number] [facility] 2022-11-19 14:15:00 2022-11-19 14:30:00 Office Visit Claud[facility]DONG [facility] 1.2.840.114 350.1.13.10 4.2.7.2.686 [id number] [facility] 2022-11-19 14:15:00 2022-11-19 14:15:00 Outpatient R CLAUDIA CURRIE [facility] [id number] [facility] 2022-11-19 00:00:00 2022-11-19 00:00:00 Telephone [facility] 1.2.840.114 350.1.13.10 4.2.7.2.686 [id number] [facility] 2022-11-09 00:00:00 2022-11-09 00:00:00 Orders Only Doctor Unassigned, [place] [facility] 1.2840.114 350.1.13.10 4.2.7.2.686 [id number] [facility] 2022-09-25 00:00:00 2022-09-25 00:00:00 Refill Izaiah [facility] HA?[facility] 1.2840.114 350.1.13.10 4.2.7.2.686 [id number] [facility] 2022-08-17 00:00:00 2022-08-17 00:00:00 [facility] 1.2840.114 350.1.13.10 4.2.7.2.686 [id number] [facility] 2022-08-06 00:00:00 2022-08-06 00:00:00 Refill Izaiah [facility] HA?[facility] 1.2840.114 350.1.13.10 4.2.7.2.686 [id number] [facility] 2022-07-06 00:00:00 2022-07-06 00:00:00 Telephone Claudia Currie [facility] HA?[facility] 1.2840.114 350.1.13.10 4.2.7.2.686 [id number] [facility] 2022-06-17 00:00:00 2022-06-17 00:00:00 Refill Izaiah [facility] HA?[facility] 1.2840.114 350.1.13.10 4.2.7.2.686 [id number] [facility] 2022-06-13 12:15:00 2022-06-13 12:30:00 Office Visit Claud[facility]DONG [facility] 1.2.840.114 350.1.13.10 4.2.7.2.686 [id number] [facility] 2022-06-13 12:15:00 2022-06-13 12:15:00 Outpatient R CURRIE CLAUDIA [facility] [id number] [facility] 2022-06-07 00:00:00 2022-06-07 00:00:00 Refill Claud[facility] 1.2.840.114 350.1.13.10 4.2.7.2.686 [id number] [facility] 2022-06-05 00:00:00 2022-06-05 00:00:00 Refill Claud[facility] 1.2.840.114 350.1.13.10 4.2.7.2.686 [id number] [facility] 2022-06-04 00:00:00 2022-06-04 00:00:00 Refill Claud[facility] 1.2.840.114 350.1.13.10 4.2.7.2.686 [id number] [facility] 2022-06-01 00:00:00 2022-06-01 00:00:00 Telephone Claudia [facility] 1.2.840.114 350.1.13.10 4.2.7.2.686 [id number] [facility] 2022-02-28 00:00:00 2022-02-28 00:00:00 Telephone Claudia [facility] 1.84114 350.1.13.10 4.2.7.2.686 [id number] [facility] 2022-01-19 16:20:00 2022-01-19 16:35:03 Outpatient R JHON [facility] [id number] [facility] 2022-01-19 16:20:00 2022-01-19 16:35:03 Urgent Care Jhon [facility] 1.840114 350.1.13.10 4.2.7.2.686 [id number] [facility] 2022-01-19 00:00:00 2022-01-19 00:00:00 Orders Only Doctor Unassigned, [place] [facility] 1.0114 350.1.13.10 4.2.7.2.686 [id number] [facility] 2021-11-27 14:00:00 2021-11-27 14:21:05 Outpatient R CLAUDIA CURRIE [facility] [id number] [facility] 2021-11-27 14:00:00 2021-11-27 14:15:00 Office Visit Izaiah [facility] 1.84114 350.1.13.10 4.2.7.2.686 [id number] [facility] 2021-11-27 14:00:00 2021-11-27 14:00:00 Outpatient R CLAUDIA CURRIE [facility] [id number] [facility] 2021-11-27 00:00:00 2021-11-27 00:00:00 Orders Only Doctor Unassigned, [place] [facility] 1.84114 350.1.13.10 4.2.7.2.686 [id number] [facility] 2021-11-24 14:00:00 2021-11-24 14:10:00 Imm/Inj Visit Vaccine, Ang Db Cbc Fam Izaiah [facility] HA?[facility] 1..840.114 350.1.13.10 4.2.7.2.686 [id number] [facility] 2021-11-24 14:00:00 2021-11-24 14:00:00 Outpatient CLAUDIA DUNCAN [facility] [id number] [facility] 2021-11-22 00:00:00 2021-11-22 00:00:00 Landykristofer Currie Claudia [facility] 1..840.114 350.1.13.10 4.2.7.2.686 [id number] [facility] 2021-09-11 00:00:00 2021-09-11 00:00:00 Brant Currie [facility] OFFICE BUILDING ONE 1..840.114 350.1.13.10 4.2.7.2.686 [id number] [facility] 2021-07-06 00:00:00 2021-07-06 00:00:00 Brant Currie [facility] OFFICE BUILDING ONE 1.840.114 350.1.13.10 4.2.7.2.686 [id number] [facility] 2021-03-15 16:20:00 2021-03-15 16:08:07 Outpatient NEAL READ [facility] [id number] [facility] 2021-03-15 16:07:30 2021-03-15 16:08:07 Imm/Inj Visit Nurse, Mark Pomckenzie Immunizatio Neal Lawton [facility] Building 1..840.114 350.1.13.10 4.2.7.2.[id number] [facility] [id number] [facility] 2021-02-15 13:30:00 2021-02-15 13:30:00 Outpatient R CURRIE CLAUDIA [facility] [id number] [facility] 2021-01-23 15:30:00 2021-01-23 15:30:00 Outpatient R JOEL MAIER [facility] [id number] [facility] 2021-01-11 11:20:00 2021-01-11 11:20:00 Outpatient R MARI MOODY [facility] [id number] [facility] 2021-01-02 15:00:00 2021-01-02 15:00:00 Outpatient R KRIS SHORT [facility] [id number] [facility] 2020-12-29 08:30:00 2020-12-29 08:30:00 Outpatient R CLAUDIA CURRIE [facility] [id number] [facility] 2020-02-17 13:20:55 2020-02-17 13:35:55 Office Visit Claudia Currie [facility] 1..840.114 350.1.13.10 4.2.7.2.686 [id number] 2020-02-17 13:15:00 2020-02-17 13:15:00 Outpatient R CLAUDIA CURRIE [facility] [id number] [facility] 2020-02-17 00:00:00 2020-02-17 00:00:00 Telephone Claudia Currie [facility] Office Building One 1..840.114 350.1.13.10 4.2.7.2.686 [id number] 2019-11-30 10:30:00 2019-11-30 10:30:00 Outpatient R DANA CUENCA [facility] [id number] [facility] 2019-11-16 10:45:00 2019-11-16 10:45:00 Outpatient R DANA CUENCA [facility] [id number] [facility] 2019-08-13 15:00:00 2019-08-13 15:00:00 Outpatient R DANA CUENCA [facility] [id number] [facility] 2019-08-12 14:00:00 2019-08-12 14:33:14 Outpatient R RAJ SHERMAN [facility] [id number] [facility] Results Test Description Test Time Test Comments Results Resul t Comments Source XR ANKLE 3+ VW LEFT 2023-12-22 5 15:16:58 EXAM: XR ANKLE 3+ VW LEFT HISTORY: inversion injury COMPARISON: None. FINDINGS: Soft tissue swelling is seen circumferentially about the ankle, moreprominent along the lateral aspect. Avulsion fractures of the medialmalleolus, lateral malleolus and lateral talar process are seen. There isborderline medial clear space widening. Calcaneal enthesophytes are noted.There is narrowing of the tibiotalar joint with osteophytosis. [facility] XR CHEST 2 VW 8 00:24:06 Chest X-Ray Indication: cough ? Technique: Frontal and lateral views of the chest are submitted forinterpretation. Comparison: None RL: Ordering Clinician: ARASELI RODRIGES Technical Quality: Adequate Findings:No acute consolidation or effusion. ?Normal mediastinal contours. ?No acutefracture deformity. [facility] Notes Date/Time Note Provider Source 2024-05-25 12:18:30 Last Refilled: Disp Refills Start End MIRIAM LISINOPRIL 20 mg tablet 90 tablet 1 11/21/2023 -- No Sig: TAKE 1 TABLET BY MOUTH DAILY Sent to pharmacy as: lisinopriL 20 mg tablet (PRINIVIL,ZESTRIL) Class: eRX Route: Oral Order: [id number] Date/Time Signed: 11/21/2023 06:45 E-Prescribing Status: Receipt confirmed by pharmacy (11/21/2023 6:46 AM CDT) Recent Visits Date Type Provider Dept 04/22/24 Office Visit Claudia Currie MD [facility] 11/25/23 Office Visit Claudia Currie MD [facility] 11/07/23 Office Visit Mari Moody PA [facility] 10/21/23 Office Visit Claudia Currie MD [facility] Showing recent visits within past 540 days with a meds authorizing provider and meeting all other requirements Future Appointments No visits were found meeting these conditions. Showing future appointments within next 150 days with a meds authorizing provider and meeting all other requirements [facility] 2024-04-08 08:47:26 Associated Problem(s): Sprain of anterior talofibular ligament of left ankle Will have patient continue with his home exercise program and follow-up as needed. [facility] 2024-04-03 09:14:41 Last Refilled: Disp Refills Start End MIRIAM clonazePAM 2 mg tablet 90 tablet 0 12/23/2023 -- No Sig: TAKE ONE TABLET BY MOUTH THREE TIMES A DAY NEEDED FOR ANXIETY Sent to pharmacy as: clonazePAM 2 mg tablet (KLONOPIN) Class: eRX Order: [id number] Date/Time Signed: 12/23/2023 07:52 E-Prescribing Status: Receipt confirmed by pharmacy (12/23/2023 7:52 AM CDT) Disp Refills Start End MIRIAM METHOCARBAMOL 750 mg tablet 40 tablet 1 10/29/2023 -- No Sig: TAKE 1 TABLET BY MOUTH 4 TIMES A DAY Sent to pharmacy as: methocarbamoL 750 mg tablet (ROBAXIN) Class: eRX Order: [id number] Date/Time Signed: 10/29/2023 07:26 E-Prescribing Status: Receipt confirmed by pharmacy (10/29/2023 7:27 AM CDT) Notes: Recent Visits Date Type Provider Dept 11/25/23 Office Visit Claudia Currie MD [facility] 11/07/23 Office Visit Mari Moody PA [facility] 10/21/23 Office Visit Claudia Currie MD [facility] 11/19/22 Office Visit Claudia Currie MD Ang-Db [facility] Med Showing recent visits within past 540 days with a meds authorizing provider and meeting all other requirements Future Appointments No visits were found meeting these conditions. Showing future appointments within next 150 days with a meds authorizing provider and meeting all other requirements Nguyen Nevarez RN [facility] 2024-01-19 19:23:04 Associated Problem(s): Sprain of anterior talofibular ligament of left ankle Reviewed x-ray that was done at outside facility as well as in our office. No fracture noted. He does have swelling and ecchymosis to the lateral aspect of his ankle. Patient is currently in a boot and I let him know that he needs to remain in the boot for the next 2 weeks and reevaluate in 2 weeks for another x-ray. Patient apprehensive about the boot because of his work and having to drive and use a clutch. He inquired about a lace up brace and a shoe at the high top. I let him know that I felt like this was not getting give him the best chance of healing and could allow him to have long-term issues with the ankle if it does not heal properly. Patient states he only has so much vacation time and cannot afford to take 2 weeks off of work. Will go and place him on light duty for now have him follow-up in 2 weeks for repeat x-ray. [facility] 2024-01-14 13:32:55 Spoke with the patient and informed results at the front office associate Damaris Navarro RN [facility] 2024-01-14 11:46:21 Pt calling requesting for the clinic to prepare a copy of his xray (cd) so that he can pick it up this afternoon or tomorrow. Please advise Lainey Lizarraga [facility] 2024-01-02 15:03:35 Copied from [facility] #[id number]. Topic: Clinical - Referral >> Jan 02, 2024 3:01 PM Patient Contract Post Office Clerk wrote: Bebo Yost is a 68 year old male pt is calling again to check the status of his call back. Paula Roberson 01/02/24 3:03 PM Paula Roberson [facility] 2024-01-01 14:38:02 Copied from CRM #[id number]. Topic: Clinical - Medical Advice >> Jan 01, 2024 2:34 PM Patient Contract Post Office Clerk wrote: Bebo Yost is a 68 year old male would like a call back from "Montse". He states she had provided him with some information about His upcoming knee replacement and he would like to speak with her about it Please advise [phone] (home) Anastasia Jonas [facility] 2023-12-23 07:12:00 Notes: Please Review Last Refilled: clonazePAM 2 mg tablet 90 tablet 0 10/23/2023 -- No Sig: TAKE ONE TABLET BY MOUTH THREE TIMES A DAY NEEDED FOR ANXIETY Sent to pharmacy as: clonazePAM 2 mg tablet (KLONOPIN) Class: eRX Order: [id number] Date/Time Signed: 10/23/2023 06:20 E-Prescribing Status: Receipt confirmed by pharmacy (10/23/2023 6:20 AM CDT) Recent Visits Date Type Provider Dept 11/25/23 Office Visit Claudia Currie MD [facility] 11/07/23 Office Visit Mari Moody PA [facility] 10/21/23 Office Visit Claudia Currie MD [facility] 11/19/22 Office Visit Claudia Currie MD [facility] Showing recent visits within past 540 days with a meds authorizing provider and meeting all other requirements Future Appointments No visits were found meeting these conditions. Showing future appointments within next 150 days with a meds authorizing provider and meeting all other requirements [facility] 2023-11-21 06:44:59 Last Refilled: LISINOPRIL 20 mg tablet 90 tablet 1 12/06/2022 -- No Sig: TAKE ONE TABLET BY MOUTH DAILY Sent to pharmacy as: lisinopriL 20 mg tablet (PRINIVIL,ZESTRIL) Class: eRX Order: [id number] Date/Time Signed: 12/06/2022 07:21 E-Prescribing Status: Receipt confirmed by pharmacy (12/06/2022 7:22 AM CDT) Recent Visits Date Type Provider Dept 11/07/23 Office Visit Mari Moody PA [facility] 10/21/23 Office Visit Claudia Currie MD [facility] 11/19/22 Office Visit Claudia Currie MD [facility] 06/13/22 Office Visit Claudia Currie MD [facility] Showing recent visits within past 540 days with a meds authorizing provider and meeting all other requirements Future Appointments No visits were found meeting these conditions. Showing future appointments within next 150 days with a meds authorizing provider and meeting all other requirements Margaux Duque [facility] 2023-11-08 09:15:25 Patient notified via private, detailed voicemail alternate to symbicort was sent into pharmacy. Coleen Stallings LVN 11/08/2023 9:15 AM [facility] 2023-11-08 08:56:38 Sent in Relevant e-solution. May try goodrx. T [facility] 2023-11-08 08:12:57 Can we please send alternative to symbicort as it cost too much Attempted to contact patient. No answer. Left message to call back. Coleen Stallings LVN 11/08/2023 8:14 AM [facility] 2023-11-07 16:56:23 Copied from [facility] #[id number]. Topic: Clinical - Order >> Nov 07, 2023 4:53 PM Patient Contract Post Office Clerk wrote: Bebo Yost is a 68 year old male and was seen today in the clinic. Provider prescribed budesonide-formoteroL 80-4.5 mcg/actuation inhaler, but the pt states it will cost him $135 to pick it up. Pt would like to know if the clinic has any discount cards or if the provider can prescribe something else. Please advise. Gris Schaefer [facility] 2023-11-07 14:55:51 Copied from [facility] #[id number]. Topic: Clinical - Medical Advice >> Nov 07, 2023 2:55 PM Patient Contract Post Office Clerk wrote: error Kelly Lagos [facility] 2023-10-29 07:13:40 Images from the original note were not included. Requested Renewals Name from pharmacy: METHOCARBAMOL 750 MG TABLET Will file in chart as: METHOCARBAMOL 750 mg tablet Sig: TAKE 1 TABLET BY MOUTH 4 TIMES A DAY Disp: 40 tablet Refills: 1 (Pharmacy requested: Not specified) Start: 10/28/2023 Class: eRX Non-formulary For: Cramp in limb Last ordered: 6 months ago (04/22/2023) by Claudia Currie MD Last refill: 07/03/2023 Rx #: [id number] Provider Review Required - Methocarbamol [id number]/28/2023 07:52 PM Protocol Details This refill cannot be delegated Manual Review: Methocarbamol for ortho staff to refill only Valid encounter within last 12 months To be filled at: [facility] [id number] [address] Recent Visits Date Type Provider Dept 10/21/23 Office Visit Claudia Currie MD [facility] 11/19/22 Office Visit Claudia Currie MD [facility] 06/13/22 Office Visit Claudia Currie MD [facility] Showing recent visits within past 540 days with a meds authorizing provider and meeting all other requirements Future Appointments No visits were found meeting these conditions. Showing future appointments within next 150 days with a meds authorizing provider and meeting all other requirements [facility] 2023-10-28 16:50:11 Called patient he sates called [facility] again and the had the medication. He picked up already Afia Ryder MA [facility] 2023-10-28 15:23:38 Copied from [facility] #[id number]. Topic: Clinical - Medical Advice >> Oct 28, 2023 3:21 PM Patient Contract Post Office Clerk wrote: Bebo Yost is a 68 year old male is calling to request that the medication be resent to the pharmacy. Pt states he went top the [facility] and they stated that [facility] had already ran it. When the pt went to the [facility] they stated they did not have it. albuterol 90 mcg/actuation inhaler Paula Roberson 10/28/23 3:22 PM Paula Roberson [facility] 2023-10-27 17:05:00 Patient informed of result through Mychart. Araseli Rodriges MD 10/27/2023 8:54 PM [facility] 2023-10-22 16:26:49 Recent Visits Date Type Provider Dept 10/21/23 Office Visit Claudia Currie MD [facility] 11/19/22 Office Visit Claudia Currie MD [facility] 06/13/22 Office Visit Claudia Currie MD [facility] Showing recent visits within past 540 days with a meds authorizing provider and meeting all other requirements Future Appointments No visits were found meeting these conditions. Showing future appointments within next 150 days with a meds authorizing provider and meeting all other requirements Last refill was Disp Refills Start End MIRIAM clonazePAM 2 mg tablet 90 tablet 1 04/04/2023 [facility] 2023-04-04 09:57:21 Formatting of this n ote is different from the original. Images from the original note were not included. Last Refilled: 12/10/22 Notes: [facility] [id number] [address] Alessandra Meneses Recent Visits Date Type Provider Dept 11/19/22 Office Visit Claudia Currie MD [facility] 06/13/22 Office Visit Claudia Currie MD [facility] 11/27/21 Office Visit Claudia Currie MD [facility] Showing recent visits within past 540 days with a meds authorizing provider and meeting all other requirements Future Appointments No visits were found meeting these conditions. Showing future appointments within next 150 days with a meds authorizing provider and meeting all other requirements Name from pharmacy: clonazePAM 2 MG TABLET Will file in chart as: CLONAZEPAM 2 mg tablet Sig: TAKE ONE TABLET BY MOUTH THREE TIMES A DAY NEEDED FOR ANXIETY Disp: 90 tablet Refills: Not specified Start: 04/04/2023 Class: eRX For: Generalized anxiety disorder Last ordered: 3 months ago (12/10/2022) by Claudia Currie MD Last refill: 02/14/2023 Rx #: [id number] Provider Review Required Failed 04/04/2023 04:48 AM Protocol Details This refill cannot be delegated Valid encounter within last 12 months To be filled at: [facility] [id number] [address] Sapna Baumann MA [facility] 2023-02-28 14:53:51 Formatting of this n ote might be different from the original. Forms faxed to [phone] and [phone] [facility] 2023-02-28 14:41:16 Formatting of this n ote might be different from the original. Antony with [employer] calling to follow up on form faxed on 02/13.Antony has stated that he has faxed the forms 4 times and tried to email Coleen Stallings however the email wouldn't go thru. Please advise. Ariadna Tipton [facility] 2023-02-26 15:21:57 Formatting of this n ote might be different from the original. Contacted Antony who stated he has faxed over forms three times with receipt confirmation. Advised him I have not received the forms. I gave him my e-mail and confirmed the fax number. He will re-send forms. Coleen Stallings LVN 02/26/2023 3:22 PM he [facility] 2023-02-26 14:40:07 Formatting of this n ote might be different from the original. Antony with [employer] calling to follow up on form faxed on 02/13. Please advise. Sandi Gleason [facility] 2023-02-14 08:30:57 Formatting of this n ote might be different from the original. Fax received from [employer] and placed in providers basket for review. Humaira Dumas MA [facility] 2023-02-13 13:05:06 Formatting of this n ote might be different from the original. Antony with [employer] will be faxing over form. Minoo Moncada [facility]
[2024-06-10] MEDS ORDERED: NA CHLORIDE 0.9% 1,000 ML ONE (00:59)
[2024-06-10 01:03] LABS: Absolute Eosinophils 0.1 K/uL (0-0.5); Absolute Monocytes 0.7 K/uL (0.1-1.3); Absolute Neutrophil 6.4 K/uL (1.8-8.0); Basophils % 0.4 % (0-1.3); Eosinophils % 0.9 % (0-4.4); Hematocrit 47.8 % (39.6-49.0); Hemoglobin 16.2 g/dL (13.6-17.9); Lymphocytes % 21.3 % (15.3-44.8); MCH 33.9 pg (27.0-35.0); MCHC 33.9 g/dL (32.0-36.0); MCV 100.1 fL (80-100); MPV 8.1 fL (7.6-11.3); Monocytes % 7.7 % (3.3-12.3); Neutrophils % 69.7 % (41.7-73.7); Nucleated Red Blood Cells % 0.1 % (0-0); Platelets 219 thou/uL (152-406); RBC Red Blood Cell Count 4.77 M/uL (4.33-5.43); Red Cell Distribution Width 13.8 % (12.1-15.2)
[2024-06-10 01:06] LABS: PT Prothrombin Time 11.5 SECONDS (9.4-12.5); PTT, Activated Partial Thromb 33.9 SECONDS (24.3-36.9); Protime INR 1.03
[2024-06-10 01:23] LABS: ALT/SGPT 32 U/L (16-61); Albumin 3.3 g/dL (3.4-5.0); Alkaline Phosphatase 71 U/L (45-117); Anion Gap 12.9 mEq/L (5.0-15.0); BUN Blood Urea Nitrogen 26 mg/dL (7-18); Bicarbonate 22 mEq/L (21-32); Bilirubin Total 0.4 mg/dL (0.2-1.0); Globulin 3.4 g/dL (2.3-3.5); Glomerular Filtration Rate 58 ml/min (=/>90); Glucose Level 144 mg/dL (74-106); Protein, Total 6.7 g/dL (6.4-8.2); Sodium Level 137 mEq/L (136-145); Troponin High Sensitivity 32.6 pg/mL (<58.9)
[2024-06-10 01:24] LABS: AST/SGOT 23 U/L (15-37); Bilirubin Direct < 0.2 mg/dL (0-0.2); Bilirubin Indirect, Calculated 0.2 mg/dL (0.2-0.8); Magnesium 2.1 mg/dL (1.6-2.4); Potassium 3.9 mEq/L (3.5-5.1)
[2024-06-10 01:37] LABS: Specific Gravity > 1.030 (1.005-1.030); Sqamous Epithelial <5 /HPF (None Seen); Urine Bacteria 20-50 /HPF (<20); Urine Bilirubin NEGATIVE (Negative); Urine Blood Negative (Negative); Urine Clarity Extremely Turbid (Clear); Urine Color Yellow (Yellow); Urine Culture Reflex Order NOT NEEDED; Urine Glucose NEGATIVE (Negative); Urine Ketones TRACE (Negative); Urine Microscopic Reflex YN ORDER UMIC; Urine Mucus 2+ /HPF (None Seen); Urine Nitrite NEGATIVE (Negative); Urine Protein 1+ (Negative); Urine Urobilinogen 1+ (Normal); Urine WBC <5 /HPF (<5)
--- NOTE | 2024-06-10 02:13 | EDPHYS ---
Physician Documentation [facility] Name: Bebo Glasgow Age: 69 yrs Sex: Male : 1955 Arrival Date: 06/09/2024 Time: 23:39 Bed 13 Private MD: ED Physician Farhat Valadez HPI: 06/10 00:13 This 69 yrs old Male presents to ER via Wheelchair with complaints of Syncope, kb Diarrhea, MUSCLE CRAMPS. 00:13 Pt is a 69 year old male who presents for syncopal episode that occurred this evening. kb states he has had diarrhea since yesterday, was trying to make it to the restroom and passed out. states pt slumped to the floor and was out for about one minute. Pt states he took 4 scoops of hammer nutrition indurolytes with some gatorade because he thinks this was due to dehydration and abnormal electrolytes. Also reports muscle cramps for 3 months intermittently. Historical: - Allergies: 00:05 No Known Allergies; jb4 - Home Meds: 00:05 lisinopril 10 mg Oral tablet daily [Active]; jb4 - PMHx: 00:05 HTN; jb4 - PSHx: 00:05 R knee; jb4 - Immunization history:: Adult Immunizations up to date. - Infectious Disease History:: Denies. - Social history:: Smoking status: Patient denies any tobacco usage or history of. ROS: 00:11 Constitutional: As per HPI kb Exam: 00:16 Constitutional: This is a well developed, well nourished patient who is awake, alert, kb and in no acute distress. Head/Face: Normocephalic, atraumatic. ENT: Moist Mucous membranes Cardiovascular: Regular rate Respiratory: Respirations even and unlabored. No increased work of breathing. Talking in full sentences Abdomen/GI: Soft, non-tender. No distention Skin: Warm, dry with normal turgor. Normal color. MS/ Extremity: Pulses equal, no cyanosis. Neurovascular intact. Full, normal range of motion. Neuro: Awake and alert, GCS 15, oriented to person, place, time, and situation. 00:47 ECG was reviewed by the Attending Physician. kb Vital Signs: 00:01 BP 98 / 63; Pulse 69; Resp 24; Temp 97.6(O); Pulse Ox 98% on R/A; Weight 125.65 kg (R); jb4 Height 5 ft. 10 in. (R); Pain 0/10; 01:15 BP 115 / 48; Pulse 74; Resp 16 S; Pulse Ox 97% on R/A; br2 02:24 BP 131 / 78; Pulse 76; Resp 22 S; Temp 97.1(TE); Pulse Ox 95% on R/A; br2 00:01 Body Mass Index 39.74 (125.65 kg, 177.8 cm) jb4 00:01 Pain Scale: Adult jb4 MDM: 00:03 Medical Screening Exam initiated kb 00:53 Data reviewed: vital signs, nurses notes. Transition of care: After a detail discussion kb of the patient's case, care is transferred to Farhat Valadez MD. 06/10 00:10 Order name: Basic Metabolic Panel; Complete Time: :28 kb 06/10 00:10 Order name: CBC with Diff; Complete Time: : kb 06/10 00:10 Order name: Hepatic Function; Complete Time: : kb 06/10 00:10 Order name: Magnesium; Complete Time: : kb 06/10 00:10 Order name: Protime (+inr); Complete Time: : kb 06/10 00:10 Order name: Ptt, Activated; Complete Time: : kb 06/10 00:10 Order name: Troponin High Sensitivity; Complete Time: :28 kb 06/10 00:10 Order name: Urinalysis w/ reflexes; Complete Time: :45 kb 06/10 00:10 Order name: EKG; Complete Time: 00:10 kb 06/10 00:10 Order name: Cardiac monitoring; Complete Time: :07 kb 06/10 00:10 Order name: EKG - Nurse/Tech; Complete Time: :07 kb 06/10 00:10 Order name: IV Saline Lock; Complete Time: :07 kb 06/10 00:10 Order name: Labs collected and sent; Complete Time: 01:07 kb 06/10 00:10 Order name: NPO; Complete Time: 01:07 kb 06/10 00:10 Order name: O2 Per Protocol; Complete Time: : kb 06/10 00:10 Order name: O2 Sat Monitoring kb EC:47 Rate is 79 beats/min. Rhythm is regular. QRS [place] is Normal. MD interval is normal at kb 150 msec. QRS interval is normal at 92 msec. QT interval is normal at 442 msec. Administered Medications: 01:07 Drug: NS 0.9% IV 1000 ml IV at 1000 ml once; to be given as a bolus over 60 minutes br2 Route: IV; Rate: 1000 ml; Site: right antecubital; 02:30 Follow up: IV Status: Completed infusion; IV Intake: 1000ml br2 Disposition: 02:11 Co-signature as Attending Physician, Claritza Friedman RN I agree with the assessment and sp4 plan of care. I reviewed the patient's care provided by Advanced Practice Provider \T\ agree w/ the diagnosis \T\ care plan. I personally saw the pt \T\ performed a substantive portion of the visit, incldng all aspects of the (History/Exam/Medical Decision Making). Disposition Summary: 06/10/24 02:12 Discharge Ordered Notes: We recommend clear liquid diet for 24 hours Location: Home sp4 Problem: new sp4 Symptoms: have improved sp4 Condition: Stable sp4 Diagnosis - Acute Syncope and Collapse, Mild to Moderate Dehydration sp4 Followup: sp4 - With: Private Physician - When: 7 - 10 days - Reason: Recheck today's complaints Discharge Instructions: - Discharge Summary Sheet sp4 - Clear Liquid Diet, Adult, [id number] sp4 Forms: - Patient Portal Instructions sp4 Signatures: Dispatcher [employer] Ita Umaña, SORIN-C SORIN-Dequan Chappell, RN RN jb4 Farhat Valadez MD MD sp4 Claritza Friedman RN RN br2
--- NOTE | 2024-06-10 02:13 | ER ---
Nurse's Notes [facility] Name: Bebo Glasgow Age: 69 yrs Sex: Male : 1955 Arrival Date: 06/09/2024 Time: 23:39 Bed 13 Private MD: Diagnosis: Acute Syncope and Collapse, Mild to Moderate Dehydration Presentation: 06/10 00:01 Chief complaint: Patient states: I passed out about an hour ago. I had woken up and was jb4 trying to get to the bathroom and had a BM, I passed out before reaching the toilet. I have been having diarrhea since last night and once today. I have been having cramps in my legs for the past 3 weeks. I have been taking electrolytes and it seems to not be helping. Coronavirus screen: At this time, the client does not indicate any symptoms associated with coronavirus-19. Ebola Screen: No symptoms or risks identified at this time. Initial Sepsis Screen: Does the patient meet any 2 criteria? No. Patient's initial sepsis screen is negative. Does the patient have a suspected source of infection? No. Patient's initial sepsis screen is negative. Risk Assessment: Do you want to hurt yourself or someone else? Patient reports no desire to harm self or others. Onset of symptoms was June 10, 2024. Transition of care: patient was not received from another setting of care. 00:01 Method Of Arrival: Wheelchair jb4 00:01 Acuity: SCOTTY 3 jb4 Triage Assessment: 00:05 General: Appears in no apparent distress. comfortable, Behavior is calm, cooperative, jb4 appropriate for age. Pain: Denies pain. EENT: No signs and/or symptoms were reported regarding the EENT system. Neuro: Level of Consciousness is awake, alert, obeys commands, Oriented to person, place, time, situation. Cardiovascular: Patient's skin is warm and dry. Respiratory: Airway is patent Respiratory effort is even, unlabored, Respiratory pattern is regular, symmetrical. GI: Reports diarrhea. Derm: Skin is intact, Skin is pink, warm \T\ dry. Musculoskeletal: Circulation, motion, and sensation intact. Range of motion: intact in all extremities. Historical: - Allergies: 00:05 No Known Allergies; jb4 - Home Meds: 00:05 lisinopril 10 mg Oral tablet daily [Active]; jb4 - PMHx: 00:05 HTN; jb4 - PSHx: 00:05 R knee; jb4 - Immunization history:: Adult Immunizations up to date. - Infectious Disease History:: Denies. - Social history:: Smoking status: Patient denies any tobacco usage or history of. Assessment: 01:15 Reassessment: Patient and/or family updated on plan of care and expected duration. Pain br2 level reassessed. Patient is alert, oriented x 3, equal unlabored respirations, skin warm/dry/pink. General: Appears in no apparent distress. comfortable, Behavior is calm, cooperative. Pain: Denies pain. Neuro: Evangelista Agitation-Sedation Scale (RASS): 0 - Alert and Calm Level of Consciousness is awake, alert, obeys commands, Oriented to person, place, time, situation. Cardiovascular: Reports lightheadedness, Capillary refill < 3 seconds Rhythm is regular. Respiratory: Airway is patent Respiratory effort is even, unlabored. GI: Reports diarrhea. : No signs and/or symptoms were reported regarding the genitourinary system. EENT: No signs and/or symptoms were reported regarding the EENT system. Derm: No signs and/or symptoms reported regarding the dermatologic system. Musculoskeletal: No signs and/or symptoms reported regarding the musculoskeletal system. Vital Signs: 00:01 BP 98 / 63; Pulse 69; Resp 24; Temp 97.6(O); Pulse Ox 98% on R/A; Weight 125.65 kg (R); jb4 Height 5 ft. 10 in. (R); Pain 0/10; 01:15 BP 115 / 48; Pulse 74; Resp 16 S; Pulse Ox 97% on R/A; br2 02:24 BP 131 / 78; Pulse 76; Resp 22 S; Temp 97.1(TE); Pulse Ox 95% on R/A; br2 00:01 Body Mass Index 39.74 (125.65 kg, 177.8 cm) jb4 00:01 Pain Scale: Adult jb4 ED Course: 06/09 23:42 Patient arrived in ED. jj6 06/10 00:03 It[facility] Gallagher [facility]-C [facility]. kb 00:03 Farhat Valadez MD is Attending Physician. kb 00:05 Triage completed. jb4 00:05 Arm band placed on right wrist. jb4 00:18 Claritza Friedman, RN is Primary Nurse. br2 00:44 EKG done, by ED staff, reviewed by Ita IRIZARRY. oe 01:07 Basic Metabolic Panel Sent. br2 01:07 CBC with Diff Sent. br2 01:07 Hepatic Function Sent. br2 01:07 Magnesium Sent. br2 01:07 Troponin High Sensitivity Sent. br2 01:10 Inserted saline lock: 20 gauge in right antecubital area, using aseptic technique. br2 Blood collected. Flushed with 10 mL NS. 02:29 No provider procedures requiring assistance completed. IV discontinued, intact, br2 bleeding controlled, No redness/swelling at site. Pressure dressing applied. Administered Medications: 01:07 Drug: NS 0.9% IV 1000 ml IV at 1000 ml once; to be given as a bolus over 60 minutes br2 Route: IV; Rate: 1000 ml; Site: right antecubital; 02:30 Follow up: IV Status: Completed infusion; IV Intake: 1000ml br2 Intake: 02:30 IV: 1000ml; Total: 1000ml. br2 Outcome: 02:12 Discharge ordered by . sp4 02:30 Patient left the ED. br2 Signatures: Ita Gallagher FNP-C FNP-Dequan Chappell, RN RN jb4 Ricky Gardner Jennifer [email or web address] Farhat Valadez MD MD sp4 Claritza Friedman, JATINDER RN br2
[2024-06-10 03:07] VITALS: BP 131/78; TEMP 97.1; O2SAT 95
--- NOTE | 2024-06-10 11:45 | EKG ---
Test Date: 2024-06-10 Test Time: 00:39:23 Tire Fixer: KORINA MEASUREMENT RESULTS: Intervals: Rate: 79 IN: 150 QRSD: 92 QT: 386 QTc: 442 [place]: P: 37 IN: 150 QRS: 56 T: 54 INTERPRETIVE STATEMENTS: Sinus rhythm with premature atrial complexes Nonspecific T wave abnormality Abnormal ECG No previous ECG available for comparison Electronically Signed On 06-10-24 11:44:56 EMERGENCY CREW SUPERVISOR by Rufino Levi
== END 2024-06-10 02:30 | disposition home or self-care (01) ==
LOC: ER 23:39
DX: E86.0 Dehydration (principal); I10 Essential (primary) hypertension
CPT/HCPCS: 93005; 85025; 81001; 80048; 36415; 83735; 85610; 80076; 85730; 84484; J7030